=== PATIENT | female | born 1950 | race Caucasian/White ===

== ENCOUNTER 2016-06-19 08:20 | Day surgery (SDC) | payer MEDICARE ==
[~2016-06-19] VITALS: Ht 177.8 cm; Wt 267.0 kg
[~2016-06-19 08:20] MED LIST: ALBU6.7H INH; BECL8.7A5 INH; CETI-188 PO; CHOL2000 PO; LEVO150T5 PO; Lactated Ringer's 1,000 ML IV ONE; MULT-36 PO; MULT-908 PO; OMEG1CAP5 PO; OMEP20TA24 PO; TRIA1CAP5 PO
[2016-06-19] MEDS ORDERED: Propofol 10,000 mCg/mL 20 mL Inj ONE (08:21)
[2016-06-19 08:46] VITALS: BP 155/90; PULSE 61; RESP 14; O2SAT 97
[2016-06-19] MEDS ORDERED: Lactated Ringer's 1,000 ML IV ONE (09:17)
--- NOTE | 2016-06-19 09:32 | PCM.HPANE ---
Patient Data Surgeon Admitting Provider: Attending Provider:Israel Keenan MD Primary Care Physician:Nigel Myers MD Other Provider:[facility] Reason for Visit Benign Neoplasm Of Colon, Gerd Ht/WT & BMI Height (Feet): 5 Height (Inches): 10 Weight (Kilograms): 267 Body Mass Index 84.00 Allergies Coded Allergies: fexofenadine HCl (Verified Adverse Reaction, Severe, ANXIETY, 08/09/14) Past Anesthesia History Anesthesia History: Denies:: Abnormal Airway, Anesthesia Reactions, Difficult Intubation, Fam Anesthesia Reaction, Fam Malignant Hypertherm, Malignant Hyperthermia Diabetes History Hx Diabetes?: No Type of Diabetes: Type II Glycemic Control: Diet Controlled MRSA MRSA: No Medications Reported Medications Cholecalciferol (Vitamin D3) (Vitamin D)2,000 Unit Capsule2,000 Unit PO DAILY 30 Days Ref 0 08/09/14 Triamterene/HCTZ 37.5-25 mg 1 Each Capsule1 Each PO DAILY 30 Days Ref 0 08/09/14 Beclomethasone Dipropionate (Qvar)8.7 Gm Aer.w.adap2 Puff INH BID 08/09/14 Albuterol Sulfate (Proventil HFA Inhaler)6.7 Gm Hfa.aer.ad1 Puff INH Q4 PRN For Shortness of Breath #1 INHALER Ref 0 08/09/14 Omeprazole Magnesium (Prilosec Otc)20 Mg Tablet.dr20 Mg PO DAILY #1 PKG Ref 0 08/09/14 Multivitamin (Daily Multiple Vitamin)1 Each Tablet1 Each PO DAILY 08/09/14 Levothyroxine 150 Mcg [id number] Mcg PO DAILY 30 Days Ref 0 08/09/14 Multivits Min/Iron/FA/Herb#186 (Hair, Skin & Nails Caplet)1 Each Tablet1 Each PO DAILY 08/09/14 [place]-3 Fatty Acids/Fish Oil (Fish Oil 1,000 mg Capsule)1 Each Capsule4 Each PO DAILY 08/09/14 Cetirizine HCl (Aller-Konstantin)10 Mg Rdotgj69 Mg PO DAILY 08/09/14 History History of ENT Problems?: Yes HEENT History: Positive for:: Dysphagia Sinus Problem (SEASONAL ALLERGIES) Denies:: Abnormal Airway Cataracts Difficult Intubation Hearing Problem TMJ Hx of Heart Problems?: No Cardiovascular History: Positive for:: Hypertension (HYPERLIPIDEMIA) Thrombophlebitis (HX VARICOSITIES LE W/ THROMBUS) Denies:: AICD Abdominal Aortic Aneurism Atrial Fibrillation Chest Pain Congestive Heart Failure Edema Heart Murmur Irregular Heartbeat Pacemaker Rheumatic Fever Valvular Heart Disease Hx of Respiratory Problem?: Yes Respiratory History: Positive for:: Asthma Denies:: COPD Chest Surgery Cough Dyspnea Emphysema Hemoptysis Oxygen Administration Pneumonia Pulmonary Embolism Tuberculosis Use of C-PAP Machine (cpap) Hx Neurologic Problems?: Yes Neurological History: Positive for:: Dizziness Denies:: Alzheimer's Disease CVA Dementia Headaches Multiple Sclerosis Parkinson's Disease Seizures Hx of GI Problems?: Yes Gastrointestinal History: Positive for:: Gastroesphageal Reflux Heartburn Denies:: Cirrhosis Diverticulitis Gall Bladder Disease Gastrointestinal Bleeding Hepatitis Hiatal Hernia Liver Disease Rectal Bleeding Hx of Problems?: No Genitourinary History: Denies:: HX of Hemodialysis Kidney Stones Urinary Tract Infection HX of Peritoneal Dialysis: No Female Hx: Denies:: Currently (S/P BTL) Endometriosis Pelvic Inflammatory Problems with Breasts? Skin History: Denies:: History Skin Disorders? Pressure Ulcers Hx Musculoskeletal Problems?: Yes Musculoskeletal History: Positive for:: Musculoskeletal Trauma (S/P LT KNEE SCOPE,RT SHOULDER RPR LT KNEE MENISCUS TEAR=CURRENT PROBLEM) Denies:: Back Injury Degenerative Joint Fibromyalgia Joint Replacement Systemic Lupus Hx of Psycho/Social Problems?: No Psycho Social History: Denies:: Anxiety Bipolar Disorder Hx Depression Suicide Attempt Hx Surgeries?: Yes (GALLBLADDER KNEE REPAIRS TUBAL APPY) Hx Any Other Health Problems?: No Other History: Positive for:: Endocrine Disease (C/OF FEVERS & NIGHT SWEATS) Thyroid Disease Denies:: Cancer Hospitalization History Blood Transfusions: Positive for:: Blood Transfusions (1978) Denies:: Blood Transfuse Reaction Hx Diabetes: No Hx Alcohol Use: NoHx Substance Use: No Smoking Status: Former Smoker Have You Smoked inLast 12 mo: No Stop/Bang Treated for Sleep Apnea?: Yes Do You Have a CPAP Machine?: Yes ARELTTE Risk Assessment: High Risk, =/>3 Yes Risk Assessment Category Category 1A: Patient has history of documented sleep apnea, and HAS NOT received any narcotic, sedative or anesthesia administration during this stay. Category 1B: Patient has history of documented sleep apnea, and HAS received any narcotic , sedative or anesthesia administration during this stay Category 2: Patient has SUSPECTED Obstructive Sleep Apnea, and HAS received any narcotic , sedative or anesthesia administration during this stay. Category 3: Patient has SUSPECTED Obstructive Sleep Apnea and HAS NOT received narcotic, sedative or anesthesia administration during this stay. Category 4: Outpatient in Procedural Areas with known sleep apnea or who screen positive for High Risk via the STOP/BANG questionnaire. Exam Exam Vital Signs Vital Signs Date Time Temp Pulse Resp B/P Pulse Ox O2 Delivery O2 Flow Rate FiO2 06/19/16 08:59 37 06/19/16 08:46 61 14 155/90 97 Room Air General Appearance: Oriented X3 HEENT/AIRWAY: MP 2 Lungs: Normal Air Movement Heart: Regular Rate/Rhythm Meds/Labs/Diagnostics Admission Meds Current Medications Lactated Ringer's (Lr) 1,000 ml @ ud STK-MED ONCE IV Last administered on t 09:17; Start 06/19/16 at 09:17; Stop 06/19/16 at 09:18; Status DC Plan Impression Patient chart reviewed, patient interviewed and anesthestic plan with risks, benefits, and alternatives discussed, and informed consent obtained. NPO Status: 8pm, water at 0330 ASA Physical Status: ASA3 Severe Disease Anesthetic Plan: MAC Bene/Risks/Altern/Consents: Yes HP Complete Prior to Induction: Yes Jos Tafoya MD Jun 19, 2016 09:32
[2016-06-19] MEDS ORDERED: Lactated Ringer's 1,000 ML IV SCH (09:33)
[2016-06-19] MEDS ORDERED: Ondansetron 2 mg/mL 2 mL Inj IVPUSH PRN (09:35)
[2016-06-19] MEDS ORDERED: MetoCLOpramide 5 mg/mL 2 mL Inj IVPUSH PRN (09:35)
--- NOTE | 2016-06-19 09:49 | PCM.ENDEGD ---
EGD Date of Service: Jun 19, 2016 Physician Israel Keenan MD Pre Procedure Diagnosis: Reflux Post Procedure Dx & Findings: Irregular Z line fundic polyps Procedure Esophagogastroduodenoscopy PROCEDURE IN DETAIL: After proper sedation, Olympus video endoscope was inserted into patient's mouth and esophagus was successfully intubated. Scope introduced esophagus. Esophagus showed normal shiny whitish mucosa consistent with squamous cell component. Z line was irregular at 40 cm from the incisors. Stomach further events to the stomach. Stomach showed normal shiny mucosa with normal appearing rugae folds without any ulcer mass erosion. Cardia fundus body antrum pylorus were all visualized. Multiple fundic polyps are noted size varied from 3 mm to 10 mm. Sampling biopsies on the largest polyps. Retroflexion was done. Stomach was easily inflated and deflatable using air. Scope further events to the distal duodenum. Duodenum revealed normal villous structures with normal appearing folds without any mass ulcer erosion. Impression Irregular Z line Fundic polyps Recommendation Await biopsy results Presedation Assessment Risks and Benefits Informed consent was obtained from the patient after all risks and benefits including but not limited to drug reaction, infection, pain, bleeding, perforation, as well as alternatives were discussed. Patient monitoring Continuous pulse oximetry, cardiac monitoring, blood pressure monitoring, IV access, and oxygen at 2L per nasal cannula. Complications There were no periprocedural complications identified. Post Procedure Plan Post Procedure Recommendations 1. Restrict activities today. 2. Resume normal activities in the morning. 3. Resume medications. 4. GERD behavioral modification: - Avoid fatty, acidic, spicy, large meals - Do not lie down after meals - Do not eat or drink anything for at least 2 1/2 hours before going to bed at night - Discontinue tobacco and alcohol - Decrease or avoid caffeine - Avoid chocolate and mints - Decrease weight - Avoid aspirin and non steroidal anti-inflammatory agents (NSAID) such as Aleve, Advil, Mobic, Naproxen, Ibuprofen, etc 5. Add proton pump inhibitor. Take 30 minutes before 1st meal of the day. 6. Patient informed of normal post procedure side effects as bloating, drowsiness, blood streaking in the stool 7. If gastric biopsy reveal H.pylori, continue with appropriate treatment 8. If small bowel biopsy reveals celiac, continue with appropriate treatment 9. Please don't hesitate to call me with any questions Israel Keenan MD Jun 19, 2016 09:49
--- NOTE | 2016-06-19 10:09 | PCM.ENDCOL ---
Colonoscopy Date of Service: Jun 19, 2016 Physician Israel Keenan MD Pre Procedure Diagnosis: Screening and personal history of Colon polyps Post Procedure Dx & Findings: Polyp hemorrhoids diverticuli Procedure Colonoscopy PROCEDURE IN DETAIL: Prep adequate Withdrawal time 11 minutes After unremarkable rectal examination the Olympus video colonoscope was inserted patient's anal canal and was advanced to cecum. Landmarks were identified including the ileocecal valve and appendiceal orifice. Scope was withdrawn systematically. Visualized colonic mucosa showed healthy shiny mucosa with normal healthy-appearing vasculature. In the ascending colon, there was a 1 mm polyp which was removed completely using cold forceps. In the transverse colon there was a 1 mm polyp which was resected completely using cold forceps. In the sigmoid colon, there are a few small diverticuli. In the rectum retroflexion was done which showed hemorrhoids. Anal canal was inspected carefully on the way out and hemorrhoids noted. Impression Polyps 2 status post complete removal Hemorrhoids Diverticuli Recommendation Repeat colonoscopy 5 years Diverticular diet Presedation Assessment Risks and Benefits Informed consent was obtained from the patient after all risks and benefits including but not limited to drug reaction, infection, pain, bleeding, perforation, as well as alternatives were discussed. Patient monitoring Continuous pulse oximetry, cardiac monitoring, blood pressure monitoring, IV access, and oxygen at 2L per nasal cannula. Complications There were no periprocedural complications identified. Post Procedure Plan Post Procedure Recommendations 1. Restrict activities today. 2. Resume normal activities in the morning. 3. Resume medications. 4. Patient informed of normal post procedure side effects as bloating, drowsiness, blood streaking in the stool. 5. average risk CRCS. If colon polyps come back as: -Hyperplastic- can repeat colonoscopy in 10 years -Tubular adenoma- repeat colonoscopy in 5 years -Tubulovillous/villous adenoma- repeat colonoscopy in 3 years -If any dysplasia- return to clinic as soon as possible 6. Please don't hesitate to call me with any questions. Israel Keenan MD Jun 19, 2016 10:09
[2016-06-19 10:11] VITALS: BP 111/89; PULSE 52; RESP 14; O2SAT 99
--- NOTE | 2016-06-19 10:18 | PCM.ANEP2 ---
Post Anesthesia Evaluation ASA/CMS Post Anesthesia VS in Patient's Normal Range?: Yes Resp Stable; Airway Patent?: Yes CV Function & Hydration Stable: Yes Mental Status Recovered?: Yes Pain control Satisfactory?: Yes N/V Control Satisfactory?: Yes Jos Tafoya MD Jun 19, 2016 10:18
--- NOTE | 2016-06-19 10:18 | PCM.ANEP1 ---
Post Anesthesia Phase 1 PACU Phase 1 Assessment Date of Service: Jun 19, 2016 Vital Signs Vital Signs Date Time Temp Pulse Resp B/P Pulse Ox O2 Delivery O2 Flow Rate FiO2 06/19/16 10:11 52 14 111/89 99 Room Air 06/19/16 08:59 37 06/19/16 08:46 61 14 155/90 97 Room Air Anesthetic Administered: MAC Level of Alertness: Awake, talking Pain: No Nausea or Vomiting: No Oxygen Delivery: Room Air Lungs: Normal Air Movement Jos Tafoya MD Jun 19, 2016 10:18
[2016-06-19 10:35] VITALS: BP 168/70; PULSE 52; RESP 16; O2SAT 100
--- NOTE | 2016-06-20 14:19 | PATH ---
SURGICAL PATHOLOGY Attending Physician:Israel Keenan M.D. CASE STATUS: Signed Out PATIENT NAME: KENNY JESUS PID: [id number] : 1950 DATE COLLECTED:06/19/2016 17:16 SPECIMEN: 1: Stomach, Polyp, Biopsy 2: Esophagus, Biopsy 3: Colon, Biopsy 4: Colon, Biopsy CLINICAL HISTORY: 1). FUNDIC POLYPS 2). Z LINE AT 40CM 3). ASCENDING POLYP 4). TRANSVERSE POLYP FINAL DIAGNOSIS: 1.FUNDIC POLYPS: BENIGN FUNDIC GLAND POLYPS INVOLVING BOTH BIOPSY FRAGMENTS. Negative for evidence of Helicobacter. Negative for intestinal metaplasia. Negative for dysplasia and malignancy. 2.BIOPSY, Z LINE AT 40 CM: SQUAMOUS MUCOSA, GASTRIC CARDIA-TYPE MUCOSA, AND SOME GASTRIC OXYNTIC MUCOSA, ALL NEGATIVE FOR SPECIALIZED METAPLASIA OF CHENG' S-TYPE ESOPHAGUS. Negative for dysplasia and malignancy. Eosinophils are not increased. 3.ASCENDING COLON POLYP: TUBULAR ADENOMA. 4.TRANSVERSE COLON POLYP: TUBULAR ADENOMA INVOLVING SINGLE BIOPSY FRAGMENT. ICD10 CODE D12.2 GROSS DESCRIPTION: The specimen is received in four formalin filled containers labeled with the patient's name. 1). The specimen is sublabeled "fundic polyps" and consists of 2 portions of tissue which aggregate to 0.3 x 0.3 x 0.3 CM. The specimen is entirely submitted in cassette 1A. 2). The specimen is sublabeled "Z line at 40 CM" and consists of 2 portions of tissue which aggregate to 0.3 x 0.3 x 0.2 CM. The specimen is entirely submitted in cassette 2A. 3). The specimen is sublabeled "ascending polyp" and consists of a 0.2 x 0.2 x 0.2 CM portion of tissue which is entirely submitted in cassette 3A. 4). The specimen is sublabeled "transverse polyp" and consists of 2 portions of tissue which aggregate to 0.3 x 0.3 x 0.2 CM. The specimen is entirely submitted in cassette 4A. 06/19/2016 [facility] MICRO DESCRIPTION: See diagnosis. ICD-9 CODES: CPT CODES: 1: 63428 2: 64299 3: 25716 4: 43409 Electronically Signed Out Tal Mcmullen MD [facility] Pathology [facility] [address] [place] [address], [place] [address] Technical component performed at [facility], [address], [place], [address]
== END 2016-06-19 23:59 | disposition home or self-care (01) ==
LOC: END 08:20
PROVIDERS: ATTEND Internal Medicine
DX: Z12.11 Encounter for screening for malignant neoplasm of colon (principal); Z86.010 Personal history of colon polyps; Z80.0 Family history of malignant neoplasm of digestive organs; D12.2 Benign neoplasm of ascending colon; D12.3 Benign neoplasm of transverse colon; K57.30 Diverticulosis of large intestine without perforation or abscess without bleeding; K64.9 Unspecified hemorrhoids; K21.9 Gastro-esophageal reflux disease without esophagitis; K31.7 Polyp of stomach and duodenum; I10 Essential (primary) hypertension; E78.5 Hyperlipidemia, unspecified; E11.9 Type 2 diabetes mellitus without complications; E03.9 Hypothyroidism, unspecified; J45.909 Unspecified asthma, uncomplicated; G47.33 Obstructive sleep apnea (adult) (pediatric); H81.09 Meniere's disease, unspecified ear; Z79.82 Long term (current) use of aspirin; Z87.891 Personal history of nicotine dependence
CPT/HCPCS: 43239; 45380; 88305; J7120